=== PATIENT | female | born 1985 | race Caucasian/White ===

== ENCOUNTER 2017-01-02 23:57 | Emergency (ER) | payer BC, OTHER ==
[~2017-01-02] VITALS: Ht 172.7 cm; Wt 72.6 kg
[~2017-01-02 23:57] MED LIST: BIRTH CONTROL PILL PO; OMEP40CA36 PO; OXYC-12 PO; PRM25T PO
[2017-01-03] MEDS ORDERED: NS IV 1000 ML 1,000 ML IV ONE (00:28)
[2017-01-03] MEDS ORDERED: ONDANSETRON 4 MG/2 ML (SDV) Z0FRAN IVP ONE (00:30)
[2017-01-03] MEDS ORDERED: KETOROLAC 30 MG/ML VIAL IVP ONE (00:30)
[2017-01-03 00:33] LABS: BASOPHILS % (AUTO) 0 % (0-10); EOSINOPHILS # (AUTO) 0.3 10^3/uL (0.0-0.3); EOSINOPHILS % (AUTO) 3 % (0-10); LYMPHOCYTES # (AUTO) 3.4 X 10^3 (1.0-4.0); LYMPHOCYTES % (AUTO) 36 % (12-44); MEAN CORPUSCULAR HEMOGLOBIN 29 PG (25-34); MEAN CORPUSCULAR HGB CONC 35 G/DL (32-36); MEAN CORPUSCULAR VOLUME 81 FL (80-99); MEAN PLATELET VOLUME 9.6 FL (7.4-10.4); MONOCYTES # (AUTO) 0.9 X 10^3 (0.0-1.0); MONOCYTES % (AUTO) 10 % (0-12); NEUTROPHILS # (AUTO) 4.9 X 10^3 (1.8-7.8); NEUTROPHILS % (AUTO) 52 % (42-75); PLATELET COUNT 301 10^3/uL (130-400); RED BLOOD COUNT 4.46 10^6/uL (4.35-5.85); RED CELL DISTRIBUTION WIDTH 12.6 % (10.0-14.5); WHITE BLOOD COUNT 9.5 10^3/uL (4.3-11.0)
[2017-01-03 00:48] LABS: ALANINE AMINOTRANSFERASE 16 U/L (0-55); ALBUMIN 4.2 GM/DL (3.2-4.5); ANION GAP 10 MMOL/L (5-14); ASPARTATE AMINO TRANSFERASE 19 U/L (5-34); BILIRUBIN,TOTAL 0.3 MG/DL (0.1-1.0); BLOOD UREA NITROGEN 11 MG/DL (7-18); BUN/CREATININE RATIO 14; CALCIUM 9.3 MG/DL (8.5-10.1); CARBON DIOXIDE 22 MMOL/L (21-32); CHLORIDE 109 MMOL/L (98-107); CREATININE SERUM 0.77 MG/DL (0.60-1.30); GFR ESTIMATED > 60; GLUCOSE 98 MG/DL (70-105); POTASSIUM 3.9 MMOL/L (3.6-5.0); SODIUM 141 MMOL/L (135-145); TOTAL PROTEIN 7.4 GM/DL (6.4-8.2)
--- OUTSIDE RECORDS SUMMARY | 2017-01-03 00:51 | XMS REPORT | Continuity of Care Document ---
Author Author [facility] Organization [facility] Address Unknown Phone Unavailable Allergies Medications Problems Procedures Results Encounters ACCT No. Visit Date/Time Discharge Status Pt. Type Provider Facility Loc./Unit Complaint [id number] 12/27/2013 16:00:00 2013 23:59:59 CLS Outpatient [id number] 12/06/2013 10:43:00 2013 17:50:00 DIS Outpatient [id number] 12/02/2013 10:31:00 2013 23:59:59 CLS Outpatient
[2017-01-03 01:03] LABS: BILIRUBIN,URINE NEGATIVE (NEGATIVE); KETONES,URINE NEGATIVE (NEGATIVE); LEUKOCYTE ESTERASE ,URINE 1+ (NEGATIVE); NITRITE,URINE NEGATIVE (NEGATIVE); PH,URINE 6 (5-9); PROTEIN,URINE 1+ (NEGATIVE); UROBILINOGEN,URINE NORMAL (NORMAL)
[2017-01-03 01:14] LABS: WBC,URINE 0-2 /HPF
--- NOTE | 2017-01-03 01:22 | ED General ---
General Chief Complaint: Back Problems Stated Complaint: POSS KIDNEY STONES Nursing Triage Note: PT TO ED W/ C/O LT FLANK PAIN ONSET 1200 YESTERDAY. REPORTS SHE TRIED TO DRINK A "SMIRNOFF" TO HELP "MOVE IT ALONG" BUT DENIED IMPROVEMENT Nursing Sepsis Screen: No Definite Risk Source of Information: Patient Exam Limitations: No Limitations History of Present Illness Time Seen by Provider: 00:34 Initial Comments This 31-year-old young lady presents to the emergency room with complaints of left lower back and flank pain that started around 23:00. She reports having an urge to urinate without much urine production throughout the day. No fever. She has a history of renal stones and states this feels similar. She is vomiting in the exam room. Allergies and Home Medications Allergies Coded Allergies: cetirizine (Unverified Allergy, Unknown, RASH, 12/02/13) Home Medications Omeprazole 40 Mg Capsule.dr, 40 MG PO DAILY, (Reported) Oxycodone Hcl/Acetaminophen 1 Each Tablet, 1-2 TAB PO Q4-6H PRN, #120 Ref 0 MAY TAKE 1 OR 2 TABS BY MOUTH EVERY 4 TO 6 HRS NEEDED FOR PAIN. DO NOT EXCEED 4000 MG TYLENOL(ACETAMINOPHEN) IN A 24 HR PERIOD. (NO MORE THAN 12 TABS IN 24 HRS) Prescribed by: HUSAM AMARAL on 12/06/13 1711 Promethazine Hcl 25 Mg Tab, 25 MG PO Q8H, #30 MAY TAKE 1 TAB BY MOUTH EVERY 8 HRS NEEDED FOR NAUSEA/VOMITING. Prescribed by: HUSAM AMARAL on 12/06/131710 [ Control Pill] , 1 TAB PO DAILY, (Reported) Constitutional: no symptoms reported EENTM: no symptoms reported Respiratory: no symptoms reported Cardiovascular: no symptoms reported Gastrointestinal: see HPI Genitourinary: see HPI : No Musculoskeletal: no symptoms reported Skin: no symptoms reported Psychiatric/Neurological: No Symptoms Reported Hematologic/Lymphatic: No Symptoms Reported Past Sliuwny-Spkbtq-Grimlw Hx Patient Social History Alcohol Use: Occasionally Uses Recreational Drug Use: No Recent Foreign Travel: No Contact w/Someone Who Travel: No Recent Infectious Disease Expo: No Surgeries HX Surgeries: Yes (ARM FX, CYST REMOVED FROM FEET, WISDOM TEETH, EGD) Surgeries: Abdominal (EGD), Gallbladder, Orthopedic Respiratory Hx Respiratory Disorders: Yes Respiratory Disorders: Pneumonia (as a child) Cardiovascular Hx Cardiac Disorders: No Neurological Hx Neurological Disorders: No Reproductive System : No Genitourinary Hx Genitourinary Disorders: Yes (HX OF KIDNEY STONE) Genitourinary Disorders: Kidney Stones Gastrointestinal Hx Gastrointestinal Disorders: Yes Gastrointestinal Disorders: Hiatal Hernia Musculoskeletal Hx Musculoskeletal Disorders: No Endocrine Hx Endocrine Disorders: No HEENT HX ENT Disorders: No Cancer Hx Cancer: No Psychosocial Hx Psychiatric Problems: No Integumentary HX Skin/Integumentary Disorder: No Blood Transfusions Hx Blood Disorders: No Physical Exam Vital Signs Vital Sign - Last 12Hours 01/03/17 00:04 Temp 97.8 Pulse 73 Resp 24 B/P (MAP) 139/103 Pulse Ox 99 O2 Delivery Room Air Capillary Refill : Less Than 3 Seconds General Appearance: WD/WN, Moderate Distress HEENT: PERRL/EOMI, Normal ENT Inspection Neck: Normal Inspection Respiratory: Lungs Clear, Normal Breath Sounds, No Accessory Muscle Use, No Respiratory Distress Cardiovascular: Regular Rate, Rhythm, No Edema, No Murmur Gastrointestinal: Normal Bowel Sounds, Non Tender, Soft Extremity: Normal Inspection, No Pedal Edema Neurologic/Psychiatric: Alert, Oriented x3, No Motor/Sensory Deficits, Normal Mood/Affect, industrial rehabilitation consultant II-XII Norm as Tested Skin: Normal Color, Warm/Dry Progress/Results/Core Measures Results/Orders Lab Results Laboratory Tests Test 01/03/17 00:06 01/03/17 00:16 Range/Units Urine Color YELLOW Urine Clarity CLEAR Urine pH 6 5-9 Urine Specific [place] 1.025 H 1.016-1.022 Urine Protein 1+ H NEGATIVE Urine Glucose (UA) NEGATIVE NEGATIVE Urine Ketones NEGATIVE NEGATIVE Urine Nitrite NEGATIVE NEGATIVE Urine Bilirubin NEGATIVE NEGATIVE Urine Urobilinogen NORMAL NORMAL MG/DL Urine Leukocyte Esterase 1+ H NEGATIVE Urine RBC (Auto) 5+ H NEGATIVE Urine RBC >100 H /HPF Urine WBC 0-2 /HPF Urine Squamous Epithelial Cells 2-5 /HPF Urine Crystals NONE /LPF Urine Bacteria NEGATIVE /HPF Urine Casts NONE /LPF Urine Mucus SMALL H /LPF Urine Culture Indicated NO White Blood Count 9.5 4.3-11.0 10^3/uL Red Blood Count 4.46 4.35-5.85 10^6/uL Hemoglobin 12.7 11.5-16.0 G/DL Hematocrit 36 35-52 % Mean Corpuscular Volume 81 80-99 FL Mean Corpuscular Hemoglobin 29 25-34 PG Mean Corpuscular Hemoglobin Concent 35 32-36 G/DL Red Cell Distribution Width 12.6 10.0-14.5 % Platelet Count 301 130-400 10^3/uL Mean Platelet Volume 9.6 7.4-10.4 FL Neutrophils (%) (Auto) 52 42-75 % Lymphocytes (%) (Auto) 36 12-44 % Monocytes (%) (Auto) 10 0-12 % Eosinophils (%) (Auto) 3 0-10 % Basophils (%) (Auto) 0 0-10 % Neutrophils # (Auto) 4.9 1.8-7.8 X 10^3 Lymphocytes # (Auto) 3.4 1.0-4.0 X 10^3 Monocytes # (Auto) 0.9 0.0-1.0 X 10^3 Eosinophils # (Auto) 0.3 0.0-0.3 10^3/uL Basophils # (Auto) 0.0 0.0-0.1 10^3/uL Sodium Level 141 135-145 MMOL/L Potassium Level 3.9 3.6-5.0 MMOL/L Chloride Level 109 H 98-107 MMOL/L Carbon Dioxide Level 22 21-32 MMOL/L Anion Gap 10 5-14 MMOL/L Blood Urea Nitrogen 11 7-18 MG/DL Creatinine 0.77 0.60-1.30 MG/DL Estimat Glomerular Filtration Rate > 60 BUN/Creatinine Ratio 14 Glucose Level 98 70-105 MG/DL Calcium Level 9.3 8.5-10.1 MG/DL Total Bilirubin 0.3 0.1-1.0 MG/DL Aspartate Amino Transf (AST/SGOT) 19 5-34 U/L Alanine Aminotransferase (ALT/SGPT) 16 0-55 U/L Alkaline Phosphatase 69 40-136 U/L Total Protein 7.4 6.4-8.2 GM/DL Albumin 4.2 3.2-4.5 GM/DL Serum Test, Qualitative NEGATIVE NEGATIVE My Orders Orders - CARY CASTRO MD Ondansetron Injection (Zofran Injectio (01/03/17 00:30) Ketorolac Injection (Toradol Injection) (01/03/17 00:30) Saline Lock/Iv-Start (01/03/17 00:28) Ns Iv 1000 Ml (Sodium Chloride 0.9%) (01/03/17 00:28) Cbc With Automated Diff (01/03/17 00:28) Comprehensive Metabolic Panel (01/03/17 00:28) Hcg,Qualitative Serum (01/03/17 00:28) Ua Culture If Indicated (01/03/17 00:58) Ct Abd/Pelvis Wo(Kidney Stone) (01/03/17 01:15) Medications Given in ED Current Medications Medications Dose Ordered Sig/Giovani Route Start Time Stop Time Status Last Admin Dose Admin Ketorolac Tromethamine 30 mg ONCE ONCE IVP 01/03/17 00:30 01/03/17 00:31 DC 01/03/17 00:35 30 MG Ondansetron HCl 8 mg ONCE ONCE IVP 01/03/17 00:30 01/03/17 00:31 DC 01/03/17 00:35 8 MG Sodium Chloride 1,000 ml @ 0 mls/hr Q0M ONCE IV 01/03/17 00:28 01/03/17 00:29 DC 01/03/17 00:35 1,000 MLS/HR Vital Signs/I&O Vital Sign - Last 12Hours 01/03/17 01/03/17 00:04 02:35 Temp 97.8 Pulse 73 62 Resp 24 18 B/P (MAP) 139/103 Pulse Ox 99 99 O2 Delivery Room Air Room Air Blood Pressure Mean: 115 Progress Note : Time: 01:25 Progress Note Patient's pain has been sufficiently treated with Toradol and nausea sufficiently treated with Zofran. She received a liter of IV fluids. Labs are unremarkable. Urine showed a significant amount of blood. CT has been ordered to evaluate for ureteral stone. Diagnostic Imaging Diagonstic Imaging: CT Plain Films/CT/US/NM/MRI: abdomen, pelvis Comments CT abdomen and pelvis without contrast viewed by me and [employer] report reviewed. There is a small stone within the bladder measuring about 2 mm. There is evidence of minimal distention of the left ureter suggesting recent passage of stone. No hydronephrosis. Departure Impression Impression: Primary Impression: Left ureteral stone Additional Impression: Nausea and vomiting Qualified Codes: R11.2 - Nausea with vomiting, unspecified Disposition: 01 HOME, SELF-CARE Condition: Improved Departure-Patient Inst. Decision time for Depature: 02:20 Referrals: MAYELA HER DO (PCP/Family) Primary Care Physician Patient Instructions: Kidney Stones in Adults Add. Discharge Instructions: Drink plenty of clear liquids. You may take Tylenol and/or ibuprofen for pain. Follow-up with your primary care provider and discuss referral to a urologist as soon as possible. Return to the ER if you have worsening symptoms. All discharge instructions reviewed with patient and/or family. Voiced understanding. CARY CASTRO MD Jan 03, 2017 01:22
[2017-01-03 02:35] VITALS: BP 122/81
--- NOTE | 2017-01-03 08:51 | Diagnostic Imaging Report ---
PROCEDURE: CT urinary tract, rule out kidney stone. TECHNIQUE: Multiple contiguous axial images were obtained through the abdomen and pelvis without the use of intravenous contrast. INDICATION: Left flank pain. FINDINGS: The lung bases are clear. The liver, the spleen, the pancreas and the adrenals appear unremarkable for an unenhanced exam. There are bilateral nonobstructive kidney stones measuring up to 4 mm in the upper pole of the left kidney and mid and lower right kidney 2 mm nonobstructive stones. There is minimal prominence of the left ureter. Calcification in the left side of the pelvis adjacent to the distal left ureter is most likely phleboliths. There is a 2 mm stone in the midline posteriorly within the urinary bladder. This probably has passed from the left ureter. No right ureteric stone. The abdominal aorta is normal in caliber. No para-aortic significantly enlarged lymph node is seen. There is suggestion of a prior cholecystectomy. There is an appendicolith seen within an otherwise normal-appearing appendix demonstrating no dilatation or surrounding inflammation. Slight prominence in the right adnexa, is probably related to a small cyst or a dominant follicle. No significant fluid or fluid collection in the abdomen or pelvis is seen. The osseous structures demonstrate mild right convexity curvature, perhaps positional. IMPRESSION: 1. Bilateral nonobstructive kidney stones. 2. There is a midline posterior bladder stone measuring 2 mm, likely recently passed from the left ureter. There is no ureteric stone on either side. 3. There is an appendicolith seen, in an otherwise normal appearing noninflamed appendix. Dictated by: Dictated on workstation # [id number]
== END 2017-01-03 02:35 | disposition home or self-care (01) ==
LOC: EDUNIT# 23:57 → ER 23:58
DX: N20.1 Calculus of ureter (principal); R11.2 Nausea with vomiting, unspecified
CPT/HCPCS: 36415; 74176; 80053; 81000; 84703; 85025; 96361; 96374; 96375